=== PATIENT | female | born 1985 ===

== ENCOUNTER 2018-02-25 16:23 | Emergency (ER) | payer OTHER ==
[2018-02-25 16:41] VITALS: TEMP 98.5
--- NOTE | 2018-02-25 17:53 | RAD ---
Date of service: 02/25/2018 PROCEDURE: Radiographs of the Right Shoulder HISTORY: R shoulder pain no trauma COMPARISON: No prior. FINDINGS: BONES: No acute fracture. JOINTS: Unremarkable. SOFT TISSUES: Normal. OTHER FINDINGS: None. IMPRESSION: No demonstrated fracture or dislocation.
[2018-02-25] MEDS ORDERED: Morphine 4 MG/ML VIAL IM ONE (18:07)
[2018-02-25] MEDS ORDERED: Morphine 4 MG/ML VIAL ONE ×2 (18:33→20:58)
--- NOTE | 2018-02-25 18:34 | ED PDOC ---
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 Patient reports it feels like her shoulder is popping in and out. She states pain got worse yesterday and she has difficulty moving shoulder. Patient took no pain medications. She has had previous shoulder problems in the past. Currently, patient denies further medical complaints. PMD: [place] Past Medical History Reviewed: Historical Data, Nursing Documentation, Vital Signs Vital Signs: Last Vital Signs Temp 98.5 F 02/25/18 16:39 Pulse 96 H 02/25/18 16:39 Resp 16 02/25/18 16:39 BP 132/85 02/25/18 16:39 Pulse Ox 99 02/25/18 16:39 - Medical History PMH: Anemia, Gastritis Other PMH: Guanakito-Danlos syndrome, mitral valve prolapse - Surgical History Surgical History: No Surg Hx Other surgeries: bilateral orthoedic knee surgery - Family History Family History: States: No Known Family Hx - Home Medications Home Medications: Ambulatory Orders Medication Instructions Recorded Acetaminophen/Codeine 1 tab PO Q6 PRN #15 tab 02/25/18 [Tylenol/Codeine 300 MG/30 MG] Lidocaine 1 each TP DAILY #10 adh..patch 02/25/18 - Allergies Allergies/Adverse Reactions: Allergies Allergy/AdvReac Type Severity Reaction Status Date / Time haloperidol [From Haldol] Allergy ANAPHYLAXIS Verified 02/25/18 16:36 NSAIDS (Non-Steroidal AdvReac NAUSEA Verified 02/25/18 16:36 Anti-Inflamma Review of Systems ROS Statement: Except As Marked, All Systems Reviewed And Found Negative Musculoskeletal: Positive for: Shoulder Pain (right) Physical Exam - Reviewed Nursing Documentation Reviewed: Yes Vital Signs Reviewed: Yes - Physical Exam Appears: Positive for: Non-toxic, No Acute Distress Head Exam: Positive for: ATRAUMATIC, NORMOCEPHALIC Skin: Positive for: Normal Color, Warm, Dry Eye Exam: Positive for: Normal appearance, EOMI, PERRL ENT: Positive for: Normal ENT Inspection Neck: Positive for: Normal, Painless ROM, Supple Cardiovascular/Chest: Positive for: Regular Rate, Rhythm. Negative for: Murmur Respiratory: Positive for: Normal Breath Sounds. Negative for: Accessory Muscle Use, Respiratory Distress Gastrointestinal/Abdominal: Positive for: Normal Exam, Soft. Negative for: Tenderness Extremity: Positive for: Other (no erythema in right shoulder). Negative for: Normal ROM (limited in right shoulder due to pain, patient is able to elevate arm 90 degrees with pain ), Tenderness (Right shoulder), Deformity (Right shoulder), Swelling (Right shoulder) Neurologic/Psych: Positive for: Alert, Oriented (x3) - ECG O2 Sat by Pulse Oximetry: 99 (RA) Pulse Ox Interpretation: Normal - Progress Re-evaluation Time: 20:00 Condition: Re-examined, Improved Medical Decision Making Medical Decision Making: Time: 1716 Initial Impression: right shoulder pain Differential diagnoses include but are not limited to: recurrent shoulder dislocation, subluxation of joint, rotator cuff injury, arthritis Initial Plan: --right shoulder XR --right upper extremity w/o contrast CT --Morphine 4 mg IM --Toradol 30 mg IM EXAM: CT Right Upper Extremity Without Intravenous Contrast, Shoulder CLINICAL HISTORY: 32 years old, female; Pain; Shoulder; Right; Additional info: Right shoulder pain no injury. Sent phy. Doc. TECHNIQUE: Axial computed tomography images of the right shoulder without intravenous contrast. All CT scans at this facility use at least one of these dose optimization techniques: automated exposure control; mA and/or kV adjustment per patient size (includes targeted exams where dose is matched to clinical indication); or iterative reconstruction. 3D reconstructed images were created and reviewed. Coronal and sagittal reformatted images were created and reviewed. COMPARISON: No relevant prior studies available. FINDINGS: Bones/joints: Unremarkable. No acute fracture. No dislocation. Soft tissues: Unremarkable. IMPRESSION: No acute CT pathology. Thank you for allowing us to participate in the care of your patient. Dictated and Authenticated by: Jb Morales MD 02/25/2018 7:38 PM Eastern Time ([place] & [place] Scribe Attestation: Documented by Sruthi Desir, acting as a scribe for Gunnar Malik MD Provider Scribe Attestation: All medical record entries made by the Scribe were at my direction and personally dictated by me. I have reviewed the chart and agree that the record accurately reflects my personal performance of the history, physical exam, medical decision making, and the department course for this patient. I have also personally directed, reviewed, and agree with the discharge instructions and disposition. Disposition - Clinical Impression Clinical Impression: Shoulder pain - Patient ED Disposition Is Patient to be Admitted: No Doctor Will See Patient In The: Office Counseled Patient/Family Regarding: Studies Performed, Diagnosis, Need For Followup - Disposition Referrals: Tito Mckeon MD [Staff Provider] - Tim Quinn MD [Staff Provider] - Disposition: Routine/Home Disposition Time: 20:00 Condition: GOOD Additional Instructions: OSCAR VALADEZ, thank you for letting us take care of you today. Your provider was Gunnar Malik MD and you were treated for RT SHOULDER PAIN. The emergency medical care you received today was directed at your acute symptoms. If you were prescribed any medication, please fill it and take as directed. It may take several days for your symptoms to resolve. Return to the Emergency Department if your symptoms worsen, do not improve, or if you have any other problems. Please contact your doctor or call one of the physicians/clinics you have been referred to that are listed on the Patient Visit Information form that is included in your discharge packet. Bring any paperwork you were given at discharge with you along with any medications you are taking to your follow up visit. Our treatment cannot replace ongoing medical care by a primary care provider outside of the emergency department. Thank you for allowing the [facility] team to be part of your care today. If you had an X-Ray or CT scan: A Radiologist will review the ED reading if any change in treatment is needed we will contact you. If you had a blood, urine, or wound culture: It will take several days for the results, if any change in treatment is needed we will contact you. If you had an STI test: It will take 48 hours for the results. Please call after 1 week if you have not heard back. Prescriptions: Acetaminophen/Codeine [Tylenol/Codeine 300 MG/30 MG] 1 tab PO Q6 PRN #15 tab PRN Reason: Pain, Severe (8-10) Lidocaine 1 each TP DAILY #10 adh..patch Instructions: Shoulder Pain (DC) Forms: [employer] ([place]), [facility] ED School/Work Excuse
[2018-02-25 21:02] VITALS: BP 118/79; PULSE 77; RESP 18
[2018-02-25 21:55] VITALS: O2SAT 99
--- NOTE | 2018-02-26 11:30 | CT ---
Date of service: 02/25/2018 PROCEDURE: CT of the right shoulder. HISTORY: right shoulder pain no injury COMPARISON: Plain radiographs performed earlier the same day TECHNIQUE: Contiguous axial images of the right shoulder were obtained. Coronal and sagittal reformats were generated. This CT exam was performed using one or more of the following dose reduction techniques: Automated exposure control, adjustment of the mA and/or kV according to patient size, and/or use of iterative reconstruction technique. FINDINGS: BONES: There is no acute displaced fracture or bone destruction. Bone alignment is normal. Bone mineralization is normal. The acromioclavicular and glenohumeral joints are normal. SOFT TISSUES: The periarticular muscles are normal. IMPRESSION: No acute fracture or dislocation. A preliminary report was provided by [employer] [facility].
== END 2018-02-25 21:45 | disposition home or self-care (01) ==
LOC: H.ER 16:23
DX: M25.511 Pain in right shoulder (principal); I34.1 Nonrheumatic mitral (valve) prolapse; Q79.6 Ehlers-Danlos syndromes
CPT/HCPCS: 73030; 73200; 81025; 96372; 99283; J1885; J2270